=== PATIENT | female | born 1975 | race Caucasian/White ===

== ENCOUNTER 2017-06-16 04:16 | Emergency (ER) | payer MEDICAID ==
[2017-06-16] MEDS ORDERED: KETOROLAC TROMETHAMINE 60 MG/2 ML SDV IM ONE (05:18)
[2017-06-16] MEDS ORDERED: CYCLOBENZAPRINE HCL 10 MG TABLET PO ONE (05:18)
--- NOTE | 2017-06-16 05:19 | ER Document Report ---
HPI - HPI Pain Level: 5 Context: Patient is a 42-year-old female presents emergency pain with a chief complaint of back pain. Patient states that she has had back pain from fibromyalgia for the past couple years. Patient states she woke up this evening with worsening back pain associated headache. Patient states she did not take anything prior to arrival. Patient states at home she takes tramadol, Robaxin and Xanax. Patient denies any urinary stress incontinence, saddle anesthesia. Patient is able to ambulate. Past medical history significant for previous hysterectomy, tubal ligation. - NEURO Neurology: REPORTS: Headache. DENIES: Weakness, Vision blurred, Dizzinesss / Vertigo - REPRODUCTIVE Reproductive: DENIES: : Past Medical History - Social History Smoking Status: Unknown if Ever Smoked Frequency of alcohol use: None Drug Abuse: None Family History: Reviewed & Not Pertinent Patient has suicidal ideation: No Patient has homicidal ideation: No Pulmonary Medical History: Reports: Hx Pneumonia Renal/ Medical History: Denies: Hx Peritoneal Dialysis Past Surgical History: Reports: Hx Cholecystectomy, Hx Hysterectomy - Immunizations Hx Diphtheria, Pertussis, Tetanus Vaccination: Yes Vertical Provider Document - CONSTITUTIONAL Agree With Documented VS: Yes Notes: PHYSICAL EXAM GENERAL: Alert, interacts well. HEAD: Normocephalic, atraumatic. NECK: Full range of motion. Supple. Trachea midline. EXTREMITIES: Moves all 4 extremities spontaneously. No edema, radial and dorsalis pedis pulses 2/4 bilaterally. No cyanosis. Back: Pain reproducible palpation of the bilateral parathoracic musculature without any spinous process deformities, step-offs. 5 out of 5 strength both distally and proximally bilateral lower extremities. 2+ patellar reflexes bilaterally. Sensation grossly intact in the bilateral lower extremities. Patient is able to ambulate without difficulty. NEUROLOGICAL: Alert and oriented x4. Normal speech, normal gait. 5 out of 5 strength in both the distal and proximal upper and lower extremities bilaterally. Sensation is grossly intact throughout. SKIN: Warm, dry, normal turgor. No rashes or lesions noted. - INFECTION CONTROL TRAVEL OUTSIDE OF THE [place] IN LAST 30 DAYS: No Course - Re-evaluation Re-evalutation: 06/16/17 06:46 Patient is a 42-year-old female is hemodynamically stable, no acute distress and afebrile. Presentation is consistent with patient's chronic back pain. The patient presents with low back pain without signs of spinal cord compression , cauda equina syndrome, infection, aneurysm, or other serious etiology. The patient is neurologically intact. Given the extremely low risk of these diagnoses further testing and evaluation for these possibilities does not appear to be indicated at this time. The patient has been instructed to return if the symptoms worsen or change in any way. - Diagnostic Test Radiology reviewed: Image reviewed, Reports reviewed Discharge - Discharge Clinical Impression: Back pain Qualifiers: Back pain location: back pain in unspecified location Chronicity: chronic Back pain laterality: bilateral Qualified Code(s): M54.9 - Dorsalgia, unspecified; G89.29 - Other chronic pain; G89.29 - Other chronic pain Condition: Good Disposition: HOME, SELF-CARE Additional Instructions: LOW BACK PAIN: Three out of every four people will have an episode of disabling back pain during their lifetime. Most commonly the pain is due to straining of the muscles and ligaments in the low back. Usual treatment includes: (1) Rest on a firm surface. Avoid lying on your stomach. (2) Ice pack the painful area. After a few days, gentle heat may be used intermittently to relax the area, or ice packs can be continued. (3) Medication may be needed -- muscle relaxers and antiinflammatory medicines are commonly used. (4) As the back improves, exercises are prescribed to strengthen the back and abdominal muscles. Your doctor will advise you on the proper care for your back at each stage in your recovery. You may be better in a few days -- or healing may take several weeks. If new symptoms of a "herniated disc" (radiation of pain, numbness, or tingling down the back of the leg or weakness in the leg) occur, you should be re-examined. Further testing may be necessary. PAIN MEDICATION INJECTION: You have received an injection of a pain medication. You should experience significant pain relief within 45 minutes. If this injection was a narcotic -- it will impair your judgement, slow your reaction time and make you sleepy (as well as relieve your pain). Narcotics also can cause nausea. You should not drive, work with machinery, or perform any task requiring mental alertness until all effects of the medication are gone -- six to eight hours. Do not take any alcohol, or sedatives, and do not take any other medication without checking with your physician. MUSCLE RELAXERS: Muscle relaxing medications are usually prescribed for acute muscle spasm or injury to the neck and back. They are often combined with antiinflammatory pain medication for increased relief. You may stop the muscle relaxer when the pain and stiffness have improved. Start the medication again if spasms recur. Muscle relaxers may cause drowsiness, especially with the first dose. Do not operate machinery or drive while under the effects of the medication. Most muscle relaxers last up to 24 hours. Do not combine the medication with alcohol. ICE PACKS: Apply ice packs frequently against the painful area. Many different schedules are recommended, such as "20 minutes on, 20 minutes off" or "one hour ice, two hours rest." If you need to work, you may need to go longer between ice treatments. You should plan to have the area ice packed AT LEAST one fourth of the time. The ice should be applied over the wrap, tape, or splint, or over a layer of cloth -- not directly against the skin. Some ice bags have a built-in cloth and can be put directly on the skin. WARM PACKS: After approximately two days, apply gentle heat (such as a heating pad or hot water bottle) for about 20 to 30 minutes about every two hours -- at least four times daily. Warmth and elevation will help you make a more rapid recovery , and will ease the pain considerably. Do not use HOT heat, and never apply heat for longer than 30 minutes. The continuous heat can invisibly damage skin and muscles -- even when no burn is seen on the surface. Damaged muscles can make you MORE sore. FOLLOW-UP CARE: If you have been referred to a physician for follow-up care, call the physician s office for an appointment as you were instructed or within the next two days. If you experience worsening or a significant change in your symptoms, notify the physician immediately or return to the Emergency Department at any time for re-evaluation. Prescriptions: Ketorolac Tromethamine [Toradol 10 mg Tablet] 10 mg PO Q8HP PRN #20 tablet PRN Reason: Cyclobenzaprine HCl [Flexeril 10 mg Tablet] 10 mg PO TIDP PRN #15 tab PRN Reason: Referrals: SUSSY JUAREZ MD [Primary Care Provider] - Follow up in 1 week
[2017-06-16] MEDS ORDERED: DEXAMETHASONE SOD PHOS INJ 10 MG/1 ML VIAL IM ONE (05:21)
--- NOTE | 2017-06-16 06:35 | RADIOLOGY REPORT (SQ) ---
EXAM DESCRIPTION: T SPINE AP/LAT CLINICAL HISTORY: 42 years, Female, pain COMPARISON: None. NUMBER OF VIEWS: 2 TECHNIQUE: Frontal and lateral views of the thoracic spine. LIMITATIONS: None. FINDINGS: Pedicles identified throughout. 12 rib bearing thoracic vertebral bodies. Vertebral body height preserved. No cortical step-offs identified. No subluxation. No fracture visualized ribs. Minimal endplate spondylosis without loss of intervertebral disc height. Cardiomediastinal silhouette demonstrates no definite abnormalities. No definite pneumothorax. Postoperative change in the upper abdomen. IMPRESSION: No acute abnormality of the thoracic spine by plain film criteria. 2010 [employer]- All Rights Reserved
[2017-06-16 07:05] VITALS: BP 121/70
== END 2017-06-16 07:02 | disposition home or self-care (01) ==
LOC: ER 04:16
DX: M79.7 Fibromyalgia (principal); M54.5 Low back pain; G89.29 Other chronic pain; R51 Headache; Z79.899 Other long term (current) drug therapy; Z79.891 Long term (current) use of opiate analgesic
CPT/HCPCS: 99284; 96372; 72070; J3490; J1885; J1100

== ENCOUNTER → 2017-06-23 | Outpatient (CLI) | payer MEDICAID ==
[2017-06-23 11:07] LABS: HEMATOCRIT 44.5 % (36.0-47.0); HEMOGLOBIN 15.2 g/dL (12.0-15.5); MEAN CORPUSCULAR HEMOGLOBIN 31.4 pg (27.0-33.4); MEAN CORPUSCULAR HGB CONC 34.1 g/dL (32.0-36.0); MEAN CORPUSCULAR VOLUME 92 fl (80-97); PLATELET COUNT 294 10^3/uL (150-450); RED BLOOD COUNT 4.84 10^6/uL (3.72-5.28); RED CELL DISTRIBUTION WIDTH 13.2 % (11.5-14.0); WHITE BLOOD COUNT 12.8 10^3/uL (4.0-10.5)
[2017-06-23 11:54] LABS: ERYTHROCYTE SEDIMENTATION RATE 23 mm/hr (0-20)
[2017-06-25 11:01] LABS: CYCLIC CITRUL PEPTIDE IGG/A AB 9 units (0-19)
== END ==
LOC: OD 09:39
PROVIDERS: ATTEND Pediatrics
DX: M25.50 Pain in unspecified joint (principal)
CPT/HCPCS: 36415; 85027; 85652; 86038; 86140; 86200; 86430